=== PATIENT | male | born 1970 | race Caucasian/White ===

== ENCOUNTER 2018-06-04 14:12 | Day surgery (SDC) | payer OTHER ==
[2018-06-04] MEDS ORDERED: CEFAZOLIN 1 GM INJ (14:54)
[2018-06-04] MEDS ORDERED: ONDANSETRON 4 MG INJ IV (15:00)
[2018-06-04] MEDS ORDERED: HYDROmorphONE 1 MG/5 ML IV SYRINGE IV ×3 (15:00)
[2018-06-04] MEDS ORDERED: OXYCODONE/ACETAMINOPHEN (5/325) TAB PO ×2 (15:00)
[2018-06-04] MEDS ORDERED: LIDOCAINE 1% (STERILE-PAK) 30 ML INJ (15:09)
[2018-06-04] MEDS ORDERED: BUPIVACAINE 0.5% (SDV) 30 ML INJ (15:09)
[2018-06-04] MEDS: BUPIVACAINE 0.5% 30 ML VIAL INJ (15:34)
[2018-06-04] MEDS: LIDOCAINE 1% (MPF) 30 ML INJ INJ (15:34)
[2018-06-04] MEDS ORDERED: KETOROLAC 30 MG INJ (15:42)
== END 2018-06-04 16:50 | disposition home or self-care (01) ==
LOC: SDS 14:12
DX: D48.1 Neoplasm of uncertain behavior of connective and other soft tissue (principal); F17.210 Nicotine dependence, cigarettes, uncomplicated
CPT/HCPCS: 26160; 88307